=== PATIENT | female | born 1945 | race African-American/Black ===

== ENCOUNTER 2017-03-09 08:38 | Emergency (ER) | payer OTHER ==
[~2017-03-09] VITALS: Ht 162.6 cm; Wt 74.5 kg
[~2017-03-09 08:38] MED LIST: AMLO10TA55 PO; ASPI81TA42 PO; CARV6 PO; GLIP10TA9 PO; HYDR-4173 PO; HYDR25TA PO; LANTUS INSULIN SQ; LOVA40TA2 PO
[2017-03-09 08:52] LABS: GLUCOSE,POINT OF CARE 211 MG/DL (70-110)
[2017-03-09 09:57] VITALS: BP 115/63
[2017-03-09] MEDS ORDERED: METHOCARBAMOL 500 MG TABLET PO ONE (10:00)
[2017-03-09] MEDS ORDERED: IBUPROFEN 600 MG TABLET PO ONE (10:00)
== END 2017-03-09 10:14 | disposition home or self-care (01) ==
LOC: EMS 08:43
DX: M54.5 Low back pain (principal); E11.29 Type 2 diabetes mellitus with other diabetic kidney complication; N28.9 Disorder of kidney and ureter, unspecified; I10 Essential (primary) hypertension; E78.00 Pure hypercholesterolemia, unspecified; Z79.4 Long term (current) use of insulin
CPT/HCPCS: 82962; 99283

== ENCOUNTER 2019-08-25 18:57 | Inpatient (IN) | payer BC, MEDICAID ==
[~2019-08-25] VITALS: Ht 162.6 cm; Wt 63.0 kg
[~2019-08-25 18:57] MED LIST changes: +ASPI81TA40 PO; -ASPI81TA42 PO
[2019-08-25 19:28] LABS: GLUCOSE,POINT OF CARE 185 MG/DL (70-110)
[2019-08-25] MEDS ORDERED: SPIR25 PO (19:30)
[2019-08-25] MEDS ORDERED: LISI-662 PO (19:30)
[2019-08-25 20:56] LABS: BASOPHILS % (AUTO) 0.6 % (0.0-2.0); EOSINOPHILS % (AUTO) 3.5 % (1.0-6.0); HEMATOCRIT 30.4 % (36-46); LYMPHOCYTES # (AUTO) 1.4 K/uL (1.0-4.8); LYMPHOCYTES % (AUTO) 45.8 % (22.0-44.0); MEAN CORPUSCULAR HEMOGLOBIN 28.4 pg (26.0-34.0); MEAN CORPUSCULAR HGB CONC 32.8 G/dL (31.0-37.0); MEAN CORPUSCULAR VOLUME 86 fL (80-100); MONOCYTES # (AUTO) 0.4 K/uL (0.1-1.0); MONOCYTES % (AUTO) 12.6 % (2.0-9.0); NEUTROPHILS # (AUTO) 1.1 K/uL (1.8-7.7); NEUTROPHILS % (AUTO) 37.5 % (40.0-70.0); PLATELET COUNT (AUTO) 144 K/uL (150-450); RED BLOOD CELL COUNT(AUTO) 3.52 MIL/uL (4.00-5.20); RED CELL DISTRIBUTION WIDTH 15.3 % (11.5-14.5)
[2019-08-25 21:13] LABS: APPEARANCE,URINE CLOUDY (CLEAR); BILIRUBIN,URINE NEGATIVE (NEGATIVE); GLUCOSE, URINE (UA) 250 mg/dL (NEGATIVE); KETONES,URINE NEGATIVE (NEGATIVE); LEUKOCYTE ESTERASE ,URINE LARGE (NEGATIVE); NITRATE,URINE POSITIVE (NEGATIVE); OCCULT BLOOD,URINE SMALL (NEGATIVE); PH,URINE 5.5 (5.0-8.0); PROTEIN,URINE POS 1+ (NEGATIVE); UROBILINOGEN,URINE 0.2 mg/dL (<=1.0)
[2019-08-25 21:29] LABS: CALCIUM, TOTAL 9.4 mg/dL (8.8-10.5); CREATININE 1.16 mg/dL (0.60-1.30); POTASSIUM 3.9 mmol/L (3.5-5.1)
[2019-08-25 21:34] LABS: BACTERIA,URINE Many /HPF (None Seen); RBC,URINE 0-2 /HPF (0-2); WBC,URINE >100 /HPF (0-5)
[2019-08-25 21:34] LABS: ALBUMIN 3.4 g/dL (3.4-5.0); BILIRUBIN,TOTAL 0.3 mg/dL (0.1-1.0); TOTAL PROTEIN, SERUM 7.9 g/dL (6.4-8.2)
[2019-08-25 21:35] LABS: SQUAMOUS EPITHELIAL CELL,UR Many /LPF (None Seen)
[2019-08-25 22:00] LABS: INFLUENZA TYPE A NEGATIVE FOR TYPE A (NEGATIVE); INFLUENZA TYPE B NEGATIVE FOR TYPE B (NEGATIVE)
[2019-08-25] MEDS ORDERED: CefTRIAXone 1 GM/DEXTROSE 50 ML IV ONE (22:00)
[2019-08-25 22:07] LABS: LACTIC ACID 0.6 mmol/L (0.4-2.0)
[2019-08-25] MEDS ORDERED: SODIUM CHLORIDE 0.9% 1,000 ML IV ONE (22:45)
[2019-08-25] MEDS ORDERED: DEXTROSE 50%-WATER 25 GM/50 ML SYRINGE IVP PRN (22:45)
[2019-08-25] MEDS ORDERED: ACETAMINOPHEN 325 MG TABLET PO PRN (22:45)
[2019-08-25] MEDS ORDERED: MAGNESIUM HYDROXIDE SUSPENSION 30 ML UDCUP PO PRN (22:45)
[2019-08-26 05:10] LABS: BASOPHILS % (AUTO) 0.4 % (0.0-2.0); EOSINOPHILS % (AUTO) 3.7 % (1.0-6.0); HEMATOCRIT 26.9 % (36-46); HEMOGLOBIN 8.8 g/dL (12.0-16.0); LYMPHOCYTES # (AUTO) 1.2 K/uL (1.0-4.8); LYMPHOCYTES % (AUTO) 47.3 % (22.0-44.0); MEAN CORPUSCULAR HEMOGLOBIN 28.1 pg (26.0-34.0); MEAN CORPUSCULAR HGB CONC 32.7 G/dL (31.0-37.0); MEAN CORPUSCULAR VOLUME 86 fL (80-100); MONOCYTES # (AUTO) 0.4 K/uL (0.1-1.0); MONOCYTES % (AUTO) 14.4 % (2.0-9.0); NEUTROPHILS # (AUTO) 0.9 K/uL (1.8-7.7); NEUTROPHILS % (AUTO) 34.2 % (40.0-70.0); PLATELET COUNT (AUTO) 120 K/uL (150-450); RED BLOOD CELL COUNT(AUTO) 3.12 MIL/uL (4.00-5.20); RED CELL DISTRIBUTION WIDTH 14.9 % (11.5-14.5)
[2019-08-26 07:14] LABS: GLUCOSE,POINT OF CARE 146 MG/DL (70-110)
[2019-08-26] MEDS: HEPARIN SODIUM,PORCINE 5,000 UNITS/ML VIAL SQ SCH ×3 (08:00→15:29)
[2019-08-26] MEDS: DOCUSATE SODIUM 100 MG CAPSULE PO SCH ×2 (08:29→20:41)
[2019-08-26] MEDS: ASPIRIN 81 MG CHEWABLE TABLET PO SCH (08:30)
[2019-08-26] MEDS: FAMOTIDINE 20 MG TABLET PO SCH (08:30)
[2019-08-26 09:46] VITALS: BP 118/66
[2019-08-26 12:10] VITALS: BP 125/67
[2019-08-26 12:36] LABS: GLUCOMETER DEV NAME(LOC) 5S.1; GLUCOSE,POINT OF CARE 121 MG/DL (70-110)
[2019-08-26] MEDS ORDERED: INSLAN SQ (14:33)
[2019-08-26] MEDS ORDERED: INFLUENZA VIRUS VACCINE QVS 2019-20 (3YR+)/PF 60 MCG/0.5 ML SYRINGE IM ONE (14:45)
[2019-08-26 17:12] VITALS: BP 122/73
[2019-08-26 20:10] LABS: GLUCOMETER DEV NAME(LOC) 5S.1; GLUCOSE,POINT OF CARE 139 MG/DL (70-110)
[2019-08-26 20:22] VITALS: BP 143/83
[2019-08-26] MEDS: INSULIN LISPRO 100 UNITS/ML SQ PRN (20:42)
[2019-08-26] MEDS ORDERED: SODIUM CHLORIDE 0.9% 500 ML IV ONE (22:05)
[2019-08-26] MEDS: CefTRIAXone 1 GM/DEXTROSE 50 ML IV SCH (22:09)
[2019-08-27 00:10] VITALS: BP 121/71
[2019-08-27] MEDS: HEPARIN SODIUM,PORCINE 5,000 UNITS/ML VIAL SQ SCH ×4 (00:19→23:34)
[2019-08-27 04:30] VITALS: BP 120/65
[2019-08-27 04:57] LABS: GLUCOMETER DEV NAME(LOC) 6N.2; GLUCOSE,POINT OF CARE 189 MG/DL (70-110)
[2019-08-27 08:06] VITALS: BP 116/64
[2019-08-27] MEDS: FAMOTIDINE 20 MG TABLET PO SCH (09:04)
[2019-08-27] MEDS: ASPIRIN 81 MG CHEWABLE TABLET PO SCH (09:05)
[2019-08-27] MEDS: DOCUSATE SODIUM 100 MG CAPSULE PO SCH ×2 (09:05→20:44)
[2019-08-27 12:52] VITALS: BP 120/76
[2019-08-27 15:49] VITALS: BP 128/66
[2019-08-27] MEDS: INSULIN LISPRO 100 UNITS/ML SQ PRN ×2 (17:21→20:44)
[2019-08-27] MEDS: MetFORMIN HCL 500 MG TABLET PO SCH (17:22)
[2019-08-27 20:10] VITALS: BP 110/61
[2019-08-27 20:14] LABS: GLUCOMETER DEV NAME(LOC) 4E.2; GLUCOSE,POINT OF CARE 111 MG/DL (70-110)
[2019-08-27 20:14] LABS: GLUCOMETER DEV NAME(LOC) 4E.2; GLUCOSE,POINT OF CARE 142 MG/DL (70-110)
[2019-08-27 20:14] LABS: GLUCOMETER DEV NAME(LOC) 4E.2; GLUCOSE,POINT OF CARE 137 MG/DL (70-110)
[2019-08-27] MEDS: CefTRIAXone 1 GM/DEXTROSE 50 ML IV SCH (21:59)
[2019-08-28 00:28] VITALS: BP 120/63
[2019-08-28 02:15] LABS: GLUCOMETER DEV NAME(LOC) 4E.2; GLUCOSE,POINT OF CARE 165 MG/DL (70-110)
[2019-08-28 05:15] VITALS: BP 127/65
[2019-08-28 05:58] LABS: BASOPHILS % (AUTO) 0.7 % (0.0-2.0); EOSINOPHILS % (AUTO) 4.7 % (1.0-6.0); HEMATOCRIT 29.4 % (36-46); HEMOGLOBIN 9.8 g/dL (12.0-16.0); LYMPHOCYTES # (AUTO) 1.5 K/uL (1.0-4.8); LYMPHOCYTES % (AUTO) 53.9 % (22.0-44.0); MEAN CORPUSCULAR HEMOGLOBIN 28.5 pg (26.0-34.0); MEAN CORPUSCULAR HGB CONC 33.3 G/dL (31.0-37.0); MEAN CORPUSCULAR VOLUME 86 fL (80-100); MONOCYTES # (AUTO) 0.4 K/uL (0.1-1.0); MONOCYTES % (AUTO) 15.8 % (2.0-9.0); NEUTROPHILS # (AUTO) 0.7 K/uL (1.8-7.7); NEUTROPHILS % (AUTO) 24.9 % (40.0-70.0); PLATELET COUNT (AUTO) 133 K/uL (150-450); RED BLOOD CELL COUNT(AUTO) 3.43 MIL/uL (4.00-5.20); RED CELL DISTRIBUTION WIDTH 14.9 % (11.5-14.5)
[2019-08-28 06:20] LABS: CALCIUM, TOTAL 9.1 mg/dL (8.8-10.5); CREATININE 1.29 mg/dL (0.60-1.30); POTASSIUM 4.5 mmol/L (3.5-5.1)
[2019-08-28 08:40] VITALS: BP 102/60
[2019-08-28] MEDS: ASPIRIN 81 MG CHEWABLE TABLET PO SCH (09:48)
[2019-08-28] MEDS: MetFORMIN HCL 500 MG TABLET PO SCH (09:48)
[2019-08-28] MEDS: HEPARIN SODIUM,PORCINE 5,000 UNITS/ML VIAL SQ SCH (09:48)
[2019-08-28] MEDS: DOCUSATE SODIUM 100 MG CAPSULE PO SCH (09:48)
[2019-08-28] MEDS: FAMOTIDINE 20 MG TABLET PO SCH (09:48)
[2019-08-28] MEDS ORDERED: CIP250 PO (11:11)
[2019-08-28] MEDS ORDERED: METF-960 PO (11:12)
[2019-08-28 21:12] LABS: GLUCOMETER DEV NAME(LOC) 6N.2; GLUCOSE,POINT OF CARE 119 MG/DL (70-110)
== END 2019-08-28 11:30 | disposition home or self-care (01) | DRG 690 ==
LOC: EMS 18:58 → 5S 08-26 05:00 → 4E 08-26 09:39 → 6N 08-28 08:21 → 4E 08-28 08:21
PROVIDERS: ADMIT Internal Medicine; ATTEND Internal Medicine
DX: N39.0 Urinary tract infection, site not specified (principal); D61.818 Other pancytopenia; E11.9 Type 2 diabetes mellitus without complications; G30.9 Alzheimer's disease, unspecified; F02.80 Dementia in other diseases classified elsewhere, unspecified severity, without behavioral disturbance, psychotic disturbance, mood disturbance, and anxiety; B96.20 Unspecified Escherichia coli [E. coli] as the cause of diseases classified elsewhere; E78.00 Pure hypercholesterolemia, unspecified; Z82.49 Family history of ischemic heart disease and other diseases of the circulatory system; Z83.3 Family history of diabetes mellitus; Z87.442 Personal history of urinary calculi; Z28.21 Immunization not carried out because of patient refusal
CPT/HCPCS: 70450; 83605; 87040; 87086; 87804; 93005; 96365; G0378; J0696; J1644; J7040